=== PATIENT | female | born 1965 | race Two or more races ===

== ENCOUNTER 2021-08-02 18:14 | Emergency (ER) | payer OTHER ==
[~2021-08-02] VITALS: Ht 144.8 cm; Wt 61.7 kg
[2021-08-02 18:30] VITALS: BP 129/70
--- NOTE | 2021-08-02 18:48 | NUR ---
PT SEEN AND EXAMINED BY .
--- NOTE | 2021-08-02 18:55 | NUR ---
FIELD REPORTER AT BEDSIDE FOR WOUND CARE.
[2021-08-02] MEDS ORDERED: TDAP [DIPH/PERTUSSIS/TET] 0.5 ML VIAL IM ONE ×2 (18:56→19:00)
[2021-08-02] MEDS ORDERED: BACI/NEOM/POLY B OINT PKT 1 UDPKT PACKET TP ONE (19:00)
--- NOTE | 2021-08-02 19:01 | NUR ---
Patient discharged to home in stable condition. Written and verbal after care instructions given. Patient verbalizes understanding of instruction.
== END 2021-08-02 19:03 | disposition home or self-care (01) ==
LOC: ER 18:20
DX: S81.012A Laceration without foreign body, left knee, initial encounter (principal); W01.0XXA Fall on same level from slipping, tripping and stumbling without subsequent striking against object, initial encounter; Y93.89 Activity, other specified; Y92.89 Other specified places as the place of occurrence of the external cause; Y99.8 Other external cause status
CPT/HCPCS: 90715

== ENCOUNTER 2024-02-16 09:24 | Emergency (ER) | payer OTHER ==
[~2024-02-16] VITALS: Ht 144.8 cm; Wt 59.0 kg
[2024-02-16 09:30] VITALS: BP 154/75; TEMP 98.1
[2024-02-16] MEDS ORDERED: IBUP-1955 PO (10:16)
[2024-02-16] MEDS ORDERED: IBUPROFEN 600 MG TABLET ONE (10:19)
[2024-02-16 10:21] VITALS: O2SAT 99
[2024-02-16] MEDS: IBUPROFEN 600 MG TABLET PO ONE (10:24)
== END 2024-02-16 10:25 | disposition home or self-care (01) ==
LOC: ER 09:58
DX: S00.83XA Contusion of other part of head, initial encounter (principal); R11.0 Nausea; R42 Dizziness and giddiness; W22.09XA Striking against other stationary object, initial encounter; Y93.89 Activity, other specified; Y92.89 Other specified places as the place of occurrence of the external cause; Y99.8 Other external cause status